=== PATIENT | male | born 1940 | race Caucasian/White ===

== ENCOUNTER → 2017-02-20 | Outpatient (CLI) | payer MEDICARE, OTHER ==
[~2017-02-20] MED LIST: ALENDRONATE SOD70 MG PO; ASPIRIN81 MG PO; CALCIUM 600 +1 EAC1 PO; DESONIDE 0.05%15 GM TOP; FINASTERIDE1 MG PO; FISH OIL 1,2001 EACH PO; FLOMAX0.4 MG PO; LIPITOR80 MG PO; NITROSTAT0.4 MG SL; PROBIOTIC1 EAC1 PO; SYNTHROID150 MCG PO; THERA M PLUS T1 EACH PO
== END | disposition short-term general hospital (02) ==
LOC: CLCARD 11:20
DX: I25.10 Atherosclerotic heart disease of native coronary artery without angina pectoris (principal); I10 Essential (primary) hypertension; E78.5 Hyperlipidemia, unspecified; E03.9 Hypothyroidism, unspecified

== ENCOUNTER → 2017-04-10 | Outpatient (CLI) | payer MEDICARE, OTHER | END | disposition short-term general hospital (02) | LOC: CLCARD 07:45 | DX: I25.10 Atherosclerotic heart disease of native coronary artery without angina pectoris (principal); E78.5 Hyperlipidemia, unspecified; I10 Essential (primary) hypertension; R07.9 Chest pain, unspecified; Z95.5 Presence of coronary angioplasty implant and graft ==